=== PATIENT | male | born 1990 | race Caucasian/White ===

== ENCOUNTER 2024-05-30 12:15 | Emergency (ER) | payer OTHER, SELFPAY ==
[2024-05-30 12:20] VITALS: BP 124/75; PULSE 69; RESP 18; TEMP 36.6; O2SAT 98; BMI 25.8
[2024-05-30 12:55] LABS: Appearance Urine UA CLEAR; Bilirubin Urine UA NEGATIVE (NEGATIVE); Color Urine UA YELLOW; Glucose Urine UA NEGATIVE (Negative); Ketones Urine UA NEGATIVE (NEGATIVE); Leukocyte Esterase Urine UA NEGATIVE (NEGATIVE); Nitrite Urine UA NEGATIVE (Negative); Occult Blood Urine UA NEGATIVE (Negative); Protein Urine UA NEGATIVE (Negative); Specific Gravity Urine UA >=1.030 (1.000-1.035); Urobilinogen Urine UA 0.2 E.U./dL (0.2)
[2024-05-30 13:02] LABS: Bacteria Urine Occasional (0-1); Culture Indicated Urine Cult Not Indicated; Mucus Urine 2+ (Negative); RBC Urine None Seen (0-5/HPF); Squamous Epithelial Cell Urine 0-1 /HPF (0-5/HPF); Urine Volume 10mL (spun); WBC Urine 0-1/HPF (0-5/HPF)
--- NOTE | 2024-05-30 13:06 | ED_ITS ---
HPI - Recheck/Abnormal Lab/Rx <Maurice Metzger PA-C - Last Filed: 05/30/24 19:29> General Chief Complaint: Recheck/Abnormal Lab/Rx Stated Complaint: rectal px Time Seen by Provider: 05/30/24 12:39 History of Present Illness HPI narrative: 33-year-old MSM male presents to the ED with rectal pain and bleeding for 4-5 days. Patient states that the pain and bleeding started after rectal intercourse 4 or 5 days ago. Patient was seen at [facility], diagnosed with proctitis and started on ciprofloxacin and hydrocortisone rectal suppositories to reduce the swelling and inflammation. Imaging was deferred at that time due to the degree of swelling. Patient has been taking the medications as prescribed, but is still experiencing significant pain. Patient describes the pain as being in the rectum and perineum, sometimes radiating into the inguinal area. No fever, chills, nausea, vomiting, chest pain, shortness of breath. Patient is still having pain and bleeding with defecation. Related Data Previous Rx's Medication Instructions Recorded levofloxacin 500 mg tablet 500 mg PO DAILY 10 days #10 tabs 05/30/24 Allergies Allergy/AdvReac Type Severity Reaction Status Date / Time No Known Drug Allergies Allergy Verified 05/30/24 12:20 Review of Systems <Maurice Metzger PA-C - Last Filed: 05/30/24 19:29> Constitutional Constitutional: Denies chills, Denies fatigue, Denies fever(s), Denies frequent falls, Denies lethargy and Denies weakness Eyes Eyes: Denies change in vision, Denies eye discharge, Denies irritation and Denies loss of vision ENT Ears, Nose, Mouth, and Throat: Denies change in voice, Denies dizziness, Denies neck pain, Denies sore throat and Denies throat swelling Cardiovascular Cardiovascular: Denies chest pain, Denies irregular heart rhythm, Denies lightheadedness, Denies palpitations, Denies dyspnea, Denies dyspnea on exertion and Denies orthopnea Respiratory Respiratory: Denies cough, Denies dyspnea, Denies dyspnea on exertion and Denies wheezing Gastrointestinal Gastrointestinal: Denies abdominal pain, Reports hematochezia, Denies change in bowel habits, Denies diarrhea, Denies nausea and Denies vomiting Comments: Rectal pain Musculoskeletal Musculoskeletal: Denies neck pain and Denies numbness Integumentary/Breasts Skin/Breast: Denies pruritus, Denies erythema, Denies rash and Denies wounds Neurologic Neurologic: Denies behavioral changes, Denies confusion, Denies dizziness, Denies frequent falls, Denies loss of vision, Denies numbness and Denies weakness Psychiatric Psychiatric: Denies anxiety, Denies behavioral changes, Denies confusion, Denies depression, Denies homicidal ideation and Denies suicidal ideation Endocrine Endocrine: Denies fatigue, Denies flushing and Denies palpitations Hematologic/Lymphatic Hematologic/Lymphatic: Denies easy bruising Allergic/Immunologic Allergic/Immunologic: Denies urticaria, Denies throat swelling and Denies wheezing Patient History <Maurice Metzger PA-C - Last Filed: 05/30/24 19:29> Social History Smoking Status: Unknown if ever smoked Smoking Status: Unknown if ever smoked alcohol intake frequency: other Substance Use Type: does not use Exam <Maurice Metzger PA-C - Last Filed: 05/30/24 19:29> Narrative Exam Narrative: Const General:?cooperative, healthy appearing and comfortable [facility] Head:?normal to inspection Ears:?hearing grossly normal bilaterally Nose:?external nose normal Face and sinus:?normal facial exam and sinuses nontender Mouth:?oral mucosae normal Throat:?posterior oropharynx normal Eyes General:?appearance normal, both eyes and all related structures Neck Neck:?normal visual inspection and no lymphadenopathy noted Resp Effort & Inspection:?normal respiratory effort Auscultation:?clear to auscultation bilaterally Cardio Rate:?regular rate Rhythm:?regular rhythm GI/ Abdomen is soft, nondistended, nontender to palpation. Normal scrotal exam. No external hemorrhoids visualized on exam. Neuro General:?patient alert, patient awake and patient oriented x3 Initial Vital Signs Initial Vital Signs: Vital Signs Temperature 97.8 F 05/30/24 12:20 Pulse Rate 69 05/30/24 12:20 Respiratory Rate 18 05/30/24 12:20 Blood Pressure 124/75 05/30/24 12:20 Pulse Oximetry 98 05/30/24 12:20 Oxygen Delivery Method Room Air 05/30/24 12:20 <Yudy Pearson DO - Last Filed: 06/05/24 07:59> Initial Vital Signs Initial Vital Signs: Vital Signs Temperature 97.8 F 05/30/24 12:20 Pulse Rate 69 05/30/24 12:20 Respiratory Rate 18 05/30/24 12:20 Blood Pressure 124/75 05/30/24 12:20 Pulse Oximetry 98 05/30/24 12:20 Oxygen Delivery Method Room Air 05/30/24 12:20 Course <Maurice Metzger PA-C - Last Filed: 05/30/24 19:29> Orders Ordered: Discontinued Medications Ceftriaxone Sodium (Ceftriaxone 2,000 Mg Vial) 1,000 mg IM NOW ONE Stop: 05/30/24 17:24 Last Admin: 05/30/24 17:47 Dose: 1,000 mg Documented By: RB Ketorolac Tromethamine (Ketorolac 30 Mg/Ml Vial) 15 mg IV NOW ONE Stop: 05/30/24 13:36 Last Admin: 05/30/24 14:00 Dose: 15 mg Documented By: RB Morphine Sulfate (Morphine 4 Mg/Ml Inj) 4 mg IV NOW ONE Stop: 05/30/24 16:23 Last Admin: 05/30/24 16:32 Dose: 4 mg Documented By: RB Vital Signs Vital signs: Vital Signs - 8 hr 05/30/24 12:20 05/30/24 16:01 05/30/24 18:11 Temperature 97.8 F 98.1 F Pulse Rate 69 71 70 Respiratory Rate 18 20 18 Blood Pressure 124/75 141/65 H 132/68 Pulse Oximetry 98 98 98 Oxygen Delivery Method Room Air Room Air <Yudy Pearson DO - Last Filed: 06/05/24 07:59> Orders Ordered: Discontinued Medications Ceftriaxone Sodium (Ceftriaxone 2,000 Mg Vial) 1,000 mg IM NOW ONE Stop: 05/30/24 17:24 Last Admin: 05/30/24 17:47 Dose: 1,000 mg Documented By: RB Ketorolac Tromethamine (Ketorolac 30 Mg/Ml Vial) 15 mg IV NOW ONE Stop: 05/30/24 13:36 Last Admin: 05/30/24 14:00 Dose: 15 mg Documented By: RB Morphine Sulfate (Morphine 4 Mg/Ml Inj) 4 mg IV NOW ONE Stop: 05/30/24 16:23 Last Admin: 05/30/24 16:32 Dose: 4 mg Documented By: RB Vital Signs Vital signs: Vital Signs - 8 hr 05/30/24 12:20 05/30/24 16:01 05/30/24 18:11 Temperature 97.8 F 98.1 F Pulse Rate 69 71 70 Respiratory Rate 18 20 18 Blood Pressure 124/75 141/65 H 132/68 Pulse Oximetry 98 98 98 Oxygen Delivery Method Room Air Room Air MDM - Recheck/Abnormal Lab/Rx <Maurice Metzger PA-C - Last Filed: 05/30/24 19:29> Lab Data 05/30/24 13:10 05/30/24 13:10 Labs: Lab Results 05/30/24 05/30/24 Range/Units 12:45 13:10 WBC 5.5 (4.5-11.0) X10^3/uL RBC 4.92 (4.5-5.9) X10^6/uL Hgb 14.5 (13.5-17.5) g/dL Hct 42.4 (41-53) % MCV 86.3 (80-100) fL MCH 29.5 (26-34) PG MCHC 34.2 (30-36) % RDW 12.6 (11.6-14.8) % Plt Count 240 (150-400) X10^3/uL Neut % (Auto) 65.4 (50-75) % Lymph % (Auto) 21.2 L (25-40) % [place] % (Auto) 12.0 (3-14) % Eos % (Auto) 0.7 L (2-4) % Baso % (Auto) 0.7 (0-2) % Neut # (Auto) 3600 (0893-1122) /uL Lymph # (Auto) 1200 (6652-4548) /uL [place] # (Auto) 700 (0-900) /uL Eos # (Auto) 0 (0-450) /uL Baso # (Auto) 0 (0-100) /uL Sodium 139 (137-145) mmol/L Potassium 4.1 (3.4-5.1) mmol/L Chloride 106 (98-107) mmol/L Carbon Dioxide 27 (22-32) mmol/L BUN 13 (9-20) mg/dL Creatinine 1.11 (0.66-1.25) mg/dL Estimated GFR > 60 (>60) mL/min BUN/Creatinine Ratio 11.7 (6-22) Glucose 93 (70-100) mg/dL Calcium 9.4 (8.4-10.2) mg/dL Total Bilirubin 0.8 (0.2-1.3) mg/dL AST 22 (17-59) IU/L ALT 20 (<50) IU/L Alkaline Phosphatase 64 (38-126) U/L Total Protein 7.0 (6.3-8.2) g/dL Albumin 4.1 (3.5-5.0) g/dL Globulin 2.9 (1.7-4.1) g/dL Albumin/Globulin Ratio 1.4 (1.0-2.8) Lipase 24 (23-300) U/L Urine Color Yellow Urine Appearance Clear Urine pH 7.0 (4.5-8.0) Ur Specific [place] >=1.030 H (1.000-1.035) Urine Protein Negative (Negative) Urine Glucose (UA) Negative (Negative) g/dL Urine Ketones Negative (NEGATIVE) Urine Occult Blood Negative (Negative) Urine Nitrate Negative (Negative) Urine Bilirubin Negative (NEGATIVE) Urine Urobilinogen 0.2 (0.2) E.U./dL Ur Leukocyte Esterase Negative (NEGATIVE) Urine RBC None seen (0-5/HPF) Urine WBC 0-1/hpf (0-5/HPF) Ur Squamous Epith Cells 0-1 /hpf (0-5/HPF) Urine Bacteria Occasional (0-1) (None) Urine Mucus 2+ H (Negative) Ur Culture Indicated? Cult not indicated Vol Urine Centrifuged 10ml (spun) RPR w/Rflx to Titer Non reactive (Non Reactive) Treponema pallidum Ab Non reactive (Non Reactive) Ur Chlamydia DNA (PCR) Not detected HIV 1&2 Ab/P24 Ag 4thGn Negative (NEGATIVE) N gonorrhoeae DNA (PCR) Not detected MDM Narrative Medical decision making narrative: 33-year-old MSM male presents to the ED with rectal pain and bleeding for 4-5 days. Concern for proctitis versus other rectal trauma versus orchitis versus other. Will obtain ultrasound scrotum, CT abdomen pelvis, UA, labs. Patient also requests STI testing. Will screen for GC, HIV, syphilis. Will give Toradol for pain. Will reassess. Labs within normal limits. UA without UTI. CT abdomen pelvis shows diffuse rectal wall thickening with narrowing of the lumen. Finding is concerning for infectious inflammatory proctitis. There is mild sigmoid diverticulosis without CT evidence of acute diverticulitis. No abscess collection. No free fluid or free air. Normal appendix. No renal stones or hydronephrosis. Scrotal ultrasound shows mild heterogeneity of the right testicle with increased vascularity, concerning for orchitis. The right epididymis demonstrates normal vascularity. It is unusual to have orchitis without associated epididymitis. Recommend follow-up ultrasound after treatment to ensure resolution. Mild increased vascularity within the midline scrotal wall may be reactive. Discussed findings with patient. Patient given a dose of ceftriaxone IM in the ED. patient's antibiotics switched to levofloxacin. Recommend follow-up with Urology and GI and PCP. ED return precautions were discussed with patient. Patient verbalized understanding. Medical records reviewed: Yes <Yudy Pearson, DO - Last Filed: 06/05/24 07:59> Lab Data Labs: Lab Results 05/30/24 05/30/24 Range/Units 12:45 13:10 WBC 5.5 (4.5-11.0) X10^3/uL RBC 4.92 (4.5-5.9) X10^6/uL Hgb 14.5 (13.5-17.5) g/dL Hct 42.4 (41-53) % MCV 86.3 (80-100) fL MCH 29.5 (26-34) PG MCHC 34.2 (30-36) % RDW 12.6 (11.6-14.8) % Plt Count 240 (150-400) X10^3/uL Neut % (Auto) 65.4 (50-75) % Lymph % (Auto) 21.2 L (25-40) % [place] % (Auto) 12.0 (3-14) % Eos % (Auto) 0.7 L (2-4) % Baso % (Auto) 0.7 (0-2) % Neut # (Auto) 3600 (7077-9050) /uL Lymph # (Auto) 1200 (2472-1014) /uL [place] # (Auto) 700 (0-900) /uL Eos # (Auto) 0 (0-450) /uL Baso # (Auto) 0 (0-100) /uL Sodium 139 (137-145) mmol/L Potassium 4.1 (3.4-5.1) mmol/L Chloride 106 (98-107) mmol/L Carbon Dioxide 27 (22-32) mmol/L BUN 13 (9-20) mg/dL Creatinine 1.11 (0.66-1.25) mg/dL Estimated GFR > 60 (>60) mL/min BUN/Creatinine Ratio 11.7 (6-22) Glucose 93 (70-100) mg/dL Calcium 9.4 (8.4-10.2) mg/dL Total Bilirubin 0.8 (0.2-1.3) mg/dL AST 22 (17-59) IU/L ALT 20 (<50) IU/L Alkaline Phosphatase 64 (38-126) U/L Total Protein 7.0 (6.3-8.2) g/dL Albumin 4.1 (3.5-5.0) g/dL Globulin 2.9 (1.7-4.1) g/dL Albumin/Globulin Ratio 1.4 (1.0-2.8) Lipase 24 (23-300) U/L Urine Color Yellow Urine Appearance Clear Urine pH 7.0 (4.5-8.0) Ur Specific [place] >=1.030 H (1.000-1.035) Urine Protein Negative (Negative) Urine Glucose (UA) Negative (Negative) g/dL Urine Ketones Negative (NEGATIVE) Urine Occult Blood Negative (Negative) Urine Nitrate Negative (Negative) Urine Bilirubin Negative (NEGATIVE) Urine Urobilinogen 0.2 (0.2) E.U./dL Ur Leukocyte Esterase Negative (NEGATIVE) Urine RBC None seen (0-5/HPF) Urine WBC 0-1/hpf (0-5/HPF) Ur Squamous Epith Cells 0-1 /hpf (0-5/HPF) Urine Bacteria Occasional (0-1) (None) Urine Mucus 2+ H (Negative) Ur Culture Indicated? Cult not indicated Vol Urine Centrifuged 10ml (spun) RPR w/Rflx to Titer Non reactive (Non Reactive) Treponema pallidum Ab Non reactive (Non Reactive) Ur Chlamydia DNA (PCR) Not detected HIV 1&2 Ab/P24 Ag 4thGn Negative (NEGATIVE) N gonorrhoeae DNA (PCR) Not detected Discharge Plan Departure Patient Disposition: Home Clinical Impression: Acute proctitis, Orchitis Instructions: DI for Proctitis Activity Restrictions/Additional Instructions: You were evaluated in the ED today for rectal pain and bleeding. Your CT scan shows proctitis which is an inflammation of the rectum and the ultrasound shows orchitis which is an infection of the testicle. You are being prescribed a different antibiotic levofloxacin to take for the next 10 days. Please take those as prescribed. You may continue using the hydrocortisone suppositories. You were also given an injection of ceftriaxone which is an antibiotic. Please follow-up with your primary care doctor, a urologist as well as a GI specialist for further evaluation and treatment. Return to the ED if you have worsening symptoms. Prescriptions: New levofloxacin 500 mg tablet 500 mg PO DAILY 10 Days Qty: 10 0RF Referrals: ProviderJami [Primary Care Provider] - Stand Alone Forms: Patient Portal/API/Survey, Work Release Note ED Sign-out <Yudy Pearson DO - Last Filed: 06/05/24 07:59> Cosign ED Attending Eduardo Attestation: I was immediately available in the department for consultation.
--- NOTE | 2024-05-30 13:16 | DI.US.S_ITS ---
PROCEDURE: US SCROTUM INDICATIONS: PAIN TECHNIQUE: Real-time scanning was performed of the scrotum and testicles, with image documentation. Color and pulse Doppler interrogation was performed of both testicles. COMPARISON: None. FINDINGS: Right: Testicle is normal in size at 4.8 x 3.3 x 2.2 cm, with a heterogeneous echotexture. Epididymis is normal in overall size and morphology. Epididymal head cyst measuring 5 millimeters. No hydrocele or varicoceles. Overlying scrotal skin is normal in thickness. Mild increased activity within the midline scrotal wall. Left: Testicle is normal in size at 4.8 x 3.2 x 2.2 cm, and homogeneous in echotexture. Epididymis is normal in overall size and morphology. Epididymal head cyst measuring 2 millimeters. Small hydrocele. No varicoceles. Overlying scrotal skin is normal in thickness. Doppler: Color and pulse Doppler demonstrate increased arterial flow within the right testicle. IMPRESSION: Mild heterogeneity of the right testicle with increased vascularity, concerning for orchitis. The right epididymis demonstrates normal vascularity. It is unusual to have orchitis without associated epididymitis. Recommend follow-up ultrasound after treatment to ensure resolution. Mild increased vascularity within the midline scrotal wall, may be reactive. Dictated by: Rolly Ackerman M.D. on 05/30/2024 at 15:31 Approved by: Rolly Ackerman M.D. on 05/30/2024 at 15:35
--- NOTE | 2024-05-30 13:16 | DI.CT.S_ITS ---
PROCEDURE: CT ABDOMEN PELVIS W CON INDICATIONS: rectal and groin pain TECHNIQUE: After the administration of intravenous contrast, axial sections acquired from the lung bases to the pubic symphysis. Coronal and sagittal reformats were performed. For radiation dose reduction, the following was used: automated exposure control, adjustment of mA and/or kV according to patient size. COMPARISON: None. FINDINGS: Image quality: Diagnostic. Lower Chest: No significant findings. ABDOMEN: Liver: No solid mass. Gallbladder: No radiopaque gallstones or wall thickening. Biliary ducts: No biliary dilation. Pancreas: No ductal dilation. Spleen: Size is within normal limits. Adrenal Glands: No adrenal nodules. Kidneys and Ureters: No hydronephrosis. No solid mass. No complex renal cystic lesion which requires follow up. Stomach and Bowel: There is diffuse rectal wall thickening with narrowing of the lumen. No other area of abnormal bowel wall thickening. No abscess collection. Sigmoid diverticulosis is seen without CT evidence of acute diverticulitis. Appendix is visualized in right lower quadrant and is within normal limits. Peritoneum: No abnormal intraperitoneal fluid. No free air. Ventral Wall: No significant ventral hernia. Abdominal Nodes: No retroperitoneal or mesenteric adenopathy by size criteria. Vessels: Aorta and inferior vena cava are normal in size. PELVIS: Pelvic Organs: Unremarkable. Bladder: No bladder wall thickening, accounting for underdistention. Pelvic Nodes: No enlarged lymph nodes. Miscellaneous: No inguinal hernias are seen. Bones: No aggressive osseous abnormality. IMPRESSION: 1. Finding is concerning for infectious inflammatory proctitis. Clinical correlation and follow-up is recommended. There is no other area of abnormal bowel wall thickening. Mild sigmoid diverticulosis without CT evidence of acute diverticulitis. No abscess collection. No free fluid or free air. Normal appendix. 2. No renal stones or hydronephrosis. Dictated by: Nabor Mo M.D. on 05/30/2024 at 14:54 Approved by: Nabor Mo M.D. on 05/30/2024 at 15:01
[2024-05-30 13:23] LABS: Add Manual Diff / Slide Review NO; Basophils Absolute Auto 0 /uL (0-100); Basophils Percent Auto 0.7 % (0-2); Eosinophils Absolute Auto 0 /uL (0-450); Eosinophils Percent Auto 0.7 % (2-4); Hematocrit 42.4 % (41-53); Hemoglobin 14.5 g/dL (13.5-17.5); Lymphocytes Absolute Auto 1200 /uL (1100-4500); Lymphocytes Percent Auto 21.2 % (25-40); Mean Corpuscular HGB Conc 34.2 % (30-36); Mean Corpuscular Hemoglobin 29.5 PG (26-34); Mean Corpuscular Volume 86.3 fL (80-100); Monocytes Absolute Auto 700 /uL (0-900); Neutrophils Absolute Auto 3600 /uL (1500-7000); Neutrophils Percent Auto 65.4 % (50-75); Platelet Count 240 X10^3/uL (150-400); Red Blood Cell Count 4.92 X10^6/uL (4.5-5.9); Red Cell Distribution Width 12.6 % (11.6-14.8); White Blood Cell Count 5.5 X10^3/uL (4.5-11.0)
[2024-05-30 13:37] LABS: Alanine Aminotransferase 20 IU/L (<50); Albumin 4.1 g/dL (3.5-5.0); Albumin Globulin Ratio 1.4 (1.0-2.8); Alkaline Phosphatase 64 U/L (38-126); Aspartate Aminotransferase 22 IU/L (17-59); BUN Creatinine Ratio 11.7 (6-22); Bilirubin Total 0.8 mg/dL (0.2-1.3); Blood Urea Nitrogen 13 mg/dL (9-20); Calcium 9.4 mg/dL (8.4-10.2); Carbon Dioxide 27 mmol/L (22-32); Chloride 106 mmol/L (98-107); Estimated Glomerular Filt Rate > 60 mL/min (>60); Globulin 2.9 g/dL (1.7-4.1); Glucose 93 mg/dL (70-100); HEMOLYSIS < 15 (0-50); Lipase 24 U/L (23-300); Potassium 4.1 mmol/L (3.4-5.1); Sodium 139 mmol/L (137-145)
[2024-05-30] MEDS: KETOROLAC 30 MG/ML VIAL 15 MG IV (14:00)
[2024-05-30 14:19] LABS: Urine N gonorrhoeae NOT DETECTED
[2024-05-30 14:20] LABS: HIV 1 & 2 Ab/Ag 4th Gen Combo NEGATIVE (NEGATIVE)
[2024-05-30 14:24] LABS: Urine Chlamydia NOT DETECTED
[2024-05-30 16:01] VITALS: BP 141/65; PULSE 71; RESP 20; O2SAT 98
[2024-05-30] MEDS: MORPHINE 4 MG/ML INJ IV (16:32)
[2024-05-30] MEDS: cefTRIAXone 2,000 MG VIAL 1000 MG IM (17:47)
[2024-05-30 18:11] VITALS: BP 132/68; PULSE 70; RESP 18; TEMP 36.7; O2SAT 98
[2024-05-31 04:14] LABS: RPR Screen Non Reactive (Non Reactive)
[2024-06-01 16:36] LABS: Treponema pallidum Antibodies Non Reactive (Non Reactive)
== END 2024-05-30 18:26 | disposition home or self-care (01) ==
PROVIDERS: Emergency Provider Student in an Organized Health Care Education/Training Program
DX: N45.2 Orchitis (principal); K62.89 Other specified diseases of anus and rectum
CPT/HCPCS: 36415; 74177; 76870; 80053; 81001; 83690; 85025; 86592; 86780; 87389; 87491; 87591; 93975; 96372; 96374; 96375; 99284; J0696; J1885; J2270; Q9967

== ENCOUNTER 2024-06-08 08:55 | Emergency (ER) | payer OTHER, SELFPAY ==
[2024-06-08 09:04] VITALS: BP 132/73; PULSE 66; RESP 14; TEMP 36.1; O2SAT 99; BMI 25.8
[2024-06-08 09:18] LABS: Appearance Urine UA CLEAR; Bilirubin Urine UA NEGATIVE (NEGATIVE); Color Urine UA YELLOW; Glucose Urine UA NEGATIVE (Negative); Ketones Urine UA NEGATIVE (NEGATIVE); Leukocyte Esterase Urine UA NEGATIVE (NEGATIVE); Nitrite Urine UA NEGATIVE (Negative); Occult Blood Urine UA NEGATIVE (Negative); Protein Urine UA NEGATIVE (Negative); Specific Gravity Urine UA 1.025 (1.000-1.035); Urobilinogen Urine UA 0.2 E.U./dL (0.2)
[2024-06-08 09:29] LABS: Bacteria Urine None Seen; Culture Indicated Urine Cult Not Indicated; RBC Urine None Seen (0-5/HPF); Squamous Epithelial Cell Urine None Seen (0-5/HPF); Urine Volume 10mL (spun); WBC Urine None Seen (0-5/HPF)
--- NOTE | 2024-06-08 11:41 | ED_ITS ---
HPI - Male Genitourinary <Mirela Mathis PA-C - Last Filed: 06/08/24 17:01> General Chief complaint: Urogenital-Male Stated complaint: Rectal pain not getting better from last ER visit Time Seen by Provider: 06/08/24 11:41 Mode of arrival: Ambulatory History of Present Illness HPI Narrative: Mr. Metz is a pleasant 33-year-old MSM male who presents to the emergency department for rectal pain, scrotal pain, dysuria x 12 days. Patient was evaluated in our ED on 05/30/2024 and was diagnosed with right-sided orchitis and prostatitis on imaging. He was treated with IM Rocephin and p.o. levofloxacin. He is on his last day (day 10) of the levofloxacin but continues to have perineal and rectal burning and significant dysuria. He has not engaged in any receptive anal intercourse since his symptoms began on 05/28/2024. He was 1st seen at [facility] 05/28 when his symptoms began suddenly after receptive anal intercourse. He denies fevers or chills but does report night sweats. Admits to feeling nauseous. Denies hematuria, melena, hematochezia, vomiting. Related Data Previous Rx's Medication Instructions Recorded acetaminophen 500 mg tablet 1,000 mg (2 x 500 mg) PO Q8H PRN 06/08/24 (Tylenol Extra Strength) pain #20 tabs ibuprofen 600 mg tablet 600 mg PO Q8H PRN pain #20 tabs 06/08/24 phenazopyridine 200 mg tablet 200 mg PO TID 6 doses #6 tabs 06/08/24 Allergies Allergy/AdvReac Type Severity Reaction Status Date / Time No Known Drug Allergies Allergy Verified 06/08/24 09:04 Review of Systems <Mirela Mathis PA-C - Last Filed: 06/08/24 17:01> Review of Systems ROS Unobtainable: All systems reviewed & are unremarkable except as noted in HPI and below Patient History <Mirela Mathis PA-C - Last Filed: 06/08/24 17:01> Social History Smoking Status: Unknown if ever smoked Smoking Status: Unknown if ever smoked alcohol intake frequency: holidays/special occasions only Substance Use Type: does not use Exam <Mirela Mathis PA-C - Last Filed: 06/08/24 17:01> Narrative Exam Narrative: GENERAL: 33 year old patient appears stated age. Well-developed patient, in no acute distress. HEAD: Atraumatic. Normocephalic. EYES: Pupils equal round and reactive. Extraocular motions intact. No scleral icterus. No injection or drainage. ENT: Nose without bleeding, purulent drainage. Throat without erythema, tonsillar hypertrophy or exudate. Airway patent. NECK: Trachea midline. Non tender CARDIOVASCULAR: Regular rate and rhythm. RESPIRATORY: Clear to auscultation. Breath sounds equal bilaterally. No wheezes, rales, or rhonchi. GASTROINTESTINAL: Bowel sounds present. Abdomen soft, mild suprapubic tenderness. No rebound or guarding. Normal external genital visualization. Circumcised penis with no rashes or drainage. Tenderness to palpation of bilateral testes and left inguinal canal. External rectal exam reveals skin tag with no obvious lesions, erythema or abscess. Patient gave verbal consent for genital exam and nurse salesperson women's hats was present. EXTREMITIES: No edema or joint tenderness. Steady gait. NEURO: AOx3. SKIN: No rash or erythema of visible areas Initial Vital Signs Initial Vital Signs: Vital Signs Temperature 97.0 F L 06/08/24 09:04 Pulse Rate 66 06/08/24 09:04 Respiratory Rate 14 06/08/24 09:04 Blood Pressure 132/73 06/08/24 09:04 Pulse Oximetry 99 06/08/24 09:04 Oxygen Delivery Method Room Air 06/08/24 09:04 <Usha Lamb DO - Last Filed: 06/11/24 07:24> Initial Vital Signs Initial Vital Signs: Vital Signs Temperature 97.0 F L 06/08/24 09:04 Pulse Rate 66 06/08/24 09:04 Respiratory Rate 14 06/08/24 09:04 Blood Pressure 132/73 06/08/24 09:04 Pulse Oximetry 99 06/08/24 09:04 Oxygen Delivery Method Room Air 06/08/24 09:04 Course <Mirela Mathis PA-C - Last Filed: 06/08/24 17:01> Course Course Narrative: 1450: Discussed case with surgeon counselor education professor Dr. Baugh. Does not recommend any acute intervention. Advised patient follow up with him in office for colonoscopy. Orders Ordered: Discontinued Medications Ketorolac Tromethamine (Ketorolac 30 Mg/Ml Vial) 15 mg IV NOW ONE Stop: 06/08/24 12:45 Last Admin: 06/08/24 13:07 Dose: 15 mg Documented By: BS Vital Signs Vital signs: Vital Signs - 8 hr 06/08/24 09:04 06/08/24 13:59 06/08/24 15:22 Temperature 97.0 F L 98.2 F Pulse Rate 66 74 72 Respiratory Rate 14 16 16 Blood Pressure 132/73 136/79 134/78 Pulse Oximetry 99 98 98 Oxygen Delivery Method Room Air Room Air Room Air <Usha Lamb DO - Last Filed: 06/11/24 07:24> Orders Ordered: Discontinued Medications Ketorolac Tromethamine (Ketorolac 30 Mg/Ml Vial) 15 mg IV NOW ONE Stop: 06/08/24 12:45 Last Admin: 06/08/24 13:07 Dose: 15 mg Documented By: BS Vital Signs Vital signs: Vital Signs - 8 hr 06/08/24 09:04 06/08/24 13:59 06/08/24 15:22 Temperature 97.0 F L 98.2 F Pulse Rate 66 74 72 Respiratory Rate 14 16 16 Blood Pressure 132/73 136/79 134/78 Pulse Oximetry 99 98 98 Oxygen Delivery Method Room Air Room Air Room Air MDM - Male Genitourinary <Mirela Mathis PA-C - Last Filed: 06/08/24 17:01> Lab Data 06/08/24 12:58 06/08/24 12:58 Labs: Lab Results 06/08/24 06/08/24 06/08/24 Range/Units 09:10 12:27 12:58 WBC 8.0 (4.5-11.0) X10^3/uL RBC 5.34 (4.5-5.9) X10^6/uL Hgb 15.6 (13.5-17.5) g/dL Hct 45.8 (41-53) % MCV 85.8 (80-100) fL MCH 29.1 (26-34) PG MCHC 33.9 (30-36) % RDW 12.8 (11.6-14.8) % Plt Count 306 (150-400) X10^3/uL Neut % (Auto) 67.8 (50-75) % Lymph % (Auto) 24.3 L (25-40) % [place] % (Auto) 6.6 (3-14) % Eos % (Auto) 0.4 L (2-4) % Baso % (Auto) 0.9 (0-2) % Neut # (Auto) 5500 (4105-6348) /uL Lymph # (Auto) 2000 (2422-1808) /uL [place] # (Auto) 500 (0-900) /uL Eos # (Auto) 0 (0-450) /uL Baso # (Auto) 100 (0-100) /uL Sodium 138 (137-145) mmol/L Potassium 4.0 (3.4-5.1) mmol/L Chloride 106 (98-107) mmol/L Carbon Dioxide 26 (22-32) mmol/L BUN 17 (9-20) mg/dL Creatinine 1.15 (0.66-1.25) mg/dL Estimated GFR > 60 (>60) mL/min BUN/Creatinine Ratio 14.8 (6-22) Glucose 91 (70-100) mg/dL Calcium 9.3 (8.4-10.2) mg/dL Total Bilirubin 0.7 (0.2-1.3) mg/dL AST 21 (17-59) IU/L ALT 17 (<50) IU/L Alkaline Phosphatase 70 (38-126) U/L Total Protein 7.5 (6.3-8.2) g/dL Albumin 4.5 (3.5-5.0) g/dL Globulin 3.0 (1.7-4.1) g/dL Albumin/Globulin Ratio 1.5 (1.0-2.8) Urine Color Yellow Yellow Urine Appearance Clear Clear Urine pH 6.0 6.5 (4.5-8.0) Ur Specific [place] 1.025 1.010 (1.000-1.035) Urine Protein Negative Negative (Negative) Urine Glucose (UA) Negative Negative (Negative) g/dL Urine Ketones Negative Negative (NEGATIVE) Urine Occult Blood Negative Negative (Negative) Urine Nitrate Negative Negative (Negative) Urine Bilirubin Negative Negative (NEGATIVE) Urine Urobilinogen 0.2 0.2 (0.2) E.U./dL Ur Leukocyte Esterase Negative Negative (NEGATIVE) Urine RBC None seen None seen (0-5/HPF) Urine WBC None seen None seen (0-5/HPF) Ur Squamous Epith Cells None seen None seen (0-5/HPF) Urine Bacteria None seen None seen (None) Ur Culture Indicated? Cult not indicated Cult not indicated Vol Urine Centrifuged 10ml (spun) 10ml (spun) Ur Chlamydia DNA (PCR) Not detected N gonorrhoeae DNA (PCR) Not detected Imaging Data CT scan - abdomen/pelvis: Radiologist's Impression: FINDINGS: Image quality: Diagnostic. Lower Chest: No significant findings. ABDOMEN: Liver: No solid mass. Gallbladder: No radiopaque gallstones or wall thickening. Biliary ducts: No biliary dilation. Pancreas: No ductal dilation. Spleen: Size is within normal limits. Coarse calcifications in the spleen likely related to remote prior granulomatous disease. Adrenal Glands: No adrenal nodules. Kidneys and Ureters: No hydronephrosis. No solid mass. No complex renal cystic lesion which requires follow up. 2 mm nonobstructing calculus at the inferior pole of the right kidney. Stomach and Bowel: Mild colonic diverticulosis without signs of acute diverticulitis. Normal appendix. Small bowel loops and stomach are unremarkable. Peritoneum: No abnormal intraperitoneal fluid. No free air. Ventral Wall: Postsurgical changes from prior umbilical hernia repair. Abdominal Nodes: No retroperitoneal or mesenteric adenopathy by size criteria. Vessels: Aorta and inferior vena cava are normal in size. PELVIS: Pelvic Organs: Prostate appears normal. Trace left hydrocele. Bladder: No bladder wall thickening, accounting for underdistention. Pelvic Nodes: No enlarged lymph nodes. Miscellaneous: No inguinal hernias are seen. Bones: No aggressive osseous abnormality. IMPRESSION: 1. No acute abnormality identified in the abdomen or pelvis. Normal appendix. 2. Colonic diverticulosis without signs of acute diverticulitis. 3. Nonobstructing 2 mm calculus at the inferior pole the right kidney. Scrotum US: Radiologist's Impression: FINDINGS: Right: Testicle is normal in size at 4.9 x 2.3 x 3.6 cm, and homogenous in echotexture. Epididymis is normal in overall size and morphology. Simple epididymal cyst. No hydrocele or varicoceles. Overlying scrotal skin is normal in thickness. Left: Testicle is normal in size at 4.9 x 2.3 x 3.0 cm, and homogeneous in echotexture. Epididymis is normal in overall size and morphology. Simple epididymal cyst. Small left hydrocele. No varicocele. Overlying scrotal skin is normal in thickness. Doppler: Color and pulse Doppler demonstrate normal and symmetric arterial flow in both testicles. IMPRESSION: No signs of testicular torsion or epididymitis. Small left hydrocele. [facility] Narrative Medical decision making narrative: 33-year-old male presents to the emergency department for , rectal, scrotal pain times 12 days. He is on day 10 of treatment for orchitis/proctitis confirmed by imaging on 05/30/2024. Differential diagnosis includes but is not limited to proctitis, orchitis, epididymitis, STD, UTI, appendicitis, diverticulitis, intra-abdominal abscess, skin abscess, anal fissure, bowel perforation, etc. On exam the patient is in no acute distress, nontoxic appearing, vital signs within normal limits. He has no external abnormalities on rectal or exam but he does have mild tenderness to palpation of the left inguinal region. After shared decision-making with the attending physician, we will proceed with repeat CT abdomen and pelvis, scrotal ultrasound, lab work. We will treat pain with Toradol. Patient's workup reveals normal WBC count at 8.0. Normal renal function and electrolytes. Negative urinalysis including gonorrhea and chlamydia. Labs on 05/30/2024 were reviewed which revealed negative for syphilis, HIV. Patient's imaging shows improvement from 05/30/2024. CT reveals no acute abnormality, normal appendix. Resolution of the proctitis/rectal wall thickening that was previously identified. CT does show a nonobstructing 2 mm calculus at the inferior pole of the right kidney and colonic diverticulosis which I discussed with the patient. Scrotal ultrasound reveals resolution of the orchitis. He does have a small left hydrocele. No signs of testicular torsion or epididymitis. Overall it appears the patient's proctitis and orchitis have resolved appropriately with antibiotics. I discussed the case with the on-call surgeon who did not recommend any acute intervention, but advises the patient follow up for colonoscopy. I also recommended the patient follow up with Urology. He was prescribed ibuprofen and Tylenol for pain in addition to AZO. Patient had improvement in the ED with Toradol. We discussed strict ER return precautions, follow up with specialists and PCP. Patient is agreeable to the plan and stable for discharge. <Usha Lamb, DO - Last Filed: 06/11/24 07:24> Lab Data Labs: Lab Results 06/08/24 06/08/24 06/08/24 Range/Units 09:10 12:27 12:58 WBC 8.0 (4.5-11.0) X10^3/uL RBC 5.34 (4.5-5.9) X10^6/uL Hgb 15.6 (13.5-17.5) g/dL Hct 45.8 (41-53) % MCV 85.8 (80-100) fL MCH 29.1 (26-34) PG MCHC 33.9 (30-36) % RDW 12.8 (11.6-14.8) % Plt Count 306 (150-400) X10^3/uL Neut % (Auto) 67.8 (50-75) % Lymph % (Auto) 24.3 L (25-40) % [place] % (Auto) 6.6 (3-14) % Eos % (Auto) 0.4 L (2-4) % Baso % (Auto) 0.9 (0-2) % Neut # (Auto) 5500 (7777-0286) /uL Lymph # (Auto) 2000 (5930-1313) /uL [place] # (Auto) 500 (0-900) /uL Eos # (Auto) 0 (0-450) /uL Baso # (Auto) 100 (0-100) /uL Sodium 138 (137-145) mmol/L Potassium 4.0 (3.4-5.1) mmol/L Chloride 106 (98-107) mmol/L Carbon Dioxide 26 (22-32) mmol/L BUN 17 (9-20) mg/dL Creatinine 1.15 (0.66-1.25) mg/dL Estimated GFR > 60 (>60) mL/min BUN/Creatinine Ratio 14.8 (6-22) Glucose 91 (70-100) mg/dL Calcium 9.3 (8.4-10.2) mg/dL Total Bilirubin 0.7 (0.2-1.3) mg/dL AST 21 (17-59) IU/L ALT 17 (<50) IU/L Alkaline Phosphatase 70 (38-126) U/L Total Protein 7.5 (6.3-8.2) g/dL Albumin 4.5 (3.5-5.0) g/dL Globulin 3.0 (1.7-4.1) g/dL Albumin/Globulin Ratio 1.5 (1.0-2.8) Urine Color Yellow Yellow Urine Appearance Clear Clear Urine pH 6.0 6.5 (4.5-8.0) Ur Specific [place] 1.025 1.010 (1.000-1.035) Urine Protein Negative Negative (Negative) Urine Glucose (UA) Negative Negative (Negative) g/dL Urine Ketones Negative Negative (NEGATIVE) Urine Occult Blood Negative Negative (Negative) Urine Nitrate Negative Negative (Negative) Urine Bilirubin Negative Negative (NEGATIVE) Urine Urobilinogen 0.2 0.2 (0.2) E.U./dL Ur Leukocyte Esterase Negative Negative (NEGATIVE) Urine RBC None seen None seen (0-5/HPF) Urine WBC None seen None seen (0-5/HPF) Ur Squamous Epith Cells None seen None seen (0-5/HPF) Urine Bacteria None seen None seen (None) Ur Culture Indicated? Cult not indicated Cult not indicated Vol Urine Centrifuged 10ml (spun) 10ml (spun) Ur Chlamydia DNA (PCR) Not detected N gonorrhoeae DNA (PCR) Not detected Discharge Plan Departure Patient Disposition: Home Clinical Impression: Male perineal pain, Pain, rectal, Left hydrocele Instructions: DI for Rectal Injury Activity Restrictions/Additional Instructions: Today your imaging showed improvements in your prior rectal and testicular infection. I have prescribed ibuprofen and acetaminophen for pain, in addition to AZO for pain. AZO will turn your urine orange. Please follow up with a surgeon for colonoscopy, and a urologist for further evaluation. Surgeon: Dr. Baugh with [facility] Urologist: Dr. Hartley with [facility]: Please rest, hydrate, continue taking stool softeners, avoid anything in the rectum, and follow up with the primary care doctor. Return to the emergency department for any new or worsening symptoms. Prescriptions: New ibuprofen 600 mg tablet 600 mg PO Q8H PRN (Reason: pain) Qty: 20 0RF acetaminophen [Tylenol Extra Strength] 500 mg tablet 1,000 mg PO Q8H PRN (Reason: pain) Qty: 20 0RF phenazopyridine 200 mg tablet 200 mg PO TID Qty: 6 0RF Referrals: Provider,Jami COOK [Primary Care Provider] - Stand Alone Forms: Patient Portal/API/Survey, Work Release Note ED Sign-out <Usha Lamb DO - Last Filed: 06/11/24 07:24> Cosign ED Attending Cosignature Attestation: Case discussed with me blood work overall reassuring with improvement on CT. Recommended consulting surgery patient has had many ED visits. I did not see or evaluate patient [id number] I was available for consultation.
[2024-06-08 12:41] LABS: Appearance Urine UA CLEAR; Bilirubin Urine UA NEGATIVE (NEGATIVE); Color Urine UA YELLOW; Glucose Urine UA NEGATIVE (Negative); Ketones Urine UA NEGATIVE (NEGATIVE); Leukocyte Esterase Urine UA NEGATIVE (NEGATIVE); Nitrite Urine UA NEGATIVE (Negative); Occult Blood Urine UA NEGATIVE (Negative); Protein Urine UA NEGATIVE (Negative); Urobilinogen Urine UA 0.2 E.U./dL (0.2); pH Urine UA 6.5 (4.5-8.0)
--- NOTE | 2024-06-08 12:44 | DI.US.S_ITS ---
PROCEDURE: US SCROTUM INDICATIONS: bilateral testicular pain TECHNIQUE: Real-time scanning was performed of the scrotum and testicles, with image documentation. Color and pulse Doppler interrogation was performed of both testicles. COMPARISON: [facility], , US SCROTUM, 05/30/2024, 14:22. FINDINGS: Right: Testicle is normal in size at 4.9 x 2.3 x 3.6 cm, and homogenous in echotexture. Epididymis is normal in overall size and morphology. Simple epididymal cyst. No hydrocele or varicoceles. Overlying scrotal skin is normal in thickness. Left: Testicle is normal in size at 4.9 x 2.3 x 3.0 cm, and homogeneous in echotexture. Epididymis is normal in overall size and morphology. Simple epididymal cyst. Small left hydrocele. No varicocele. Overlying scrotal skin is normal in thickness. Doppler: Color and pulse Doppler demonstrate normal and symmetric arterial flow in both testicles. IMPRESSION: No signs of testicular torsion or epididymitis. Small left hydrocele. Approved by: Rei Mullen M.D. on 06/08/2024 at 14:06
--- NOTE | 2024-06-08 12:44 | DI.CT.S_ITS ---
PROCEDURE: CT ABDOMEN PELVIS W CON INDICATIONS: rectal, scrotal, left inguinal pain TECHNIQUE: After the administration of intravenous contrast, axial sections acquired from the lung bases to the pubic symphysis. Coronal and sagittal reformats were performed. For radiation dose reduction, the following was used: automated exposure control, adjustment of mA and/or kV according to patient size. COMPARISON: [facility], CT, CT ABDOMEN PELVIS W CON, 05/30/2024, 14:13. FINDINGS: Image quality: Diagnostic. Lower Chest: No significant findings. ABDOMEN: Liver: No solid mass. Gallbladder: No radiopaque gallstones or wall thickening. Biliary ducts: No biliary dilation. Pancreas: No ductal dilation. Spleen: Size is within normal limits. Coarse calcifications in the spleen likely related to remote prior granulomatous disease. Adrenal Glands: No adrenal nodules. Kidneys and Ureters: No hydronephrosis. No solid mass. No complex renal cystic lesion which requires follow up. 2 mm nonobstructing calculus at the inferior pole of the right kidney. Stomach and Bowel: Mild colonic diverticulosis without signs of acute diverticulitis. Normal appendix. Small bowel loops and stomach are unremarkable. Peritoneum: No abnormal intraperitoneal fluid. No free air. Ventral Wall: Postsurgical changes from prior umbilical hernia repair. Abdominal Nodes: No retroperitoneal or mesenteric adenopathy by size criteria. Vessels: Aorta and inferior vena cava are normal in size. PELVIS: Pelvic Organs: Prostate appears normal. Trace left hydrocele. Bladder: No bladder wall thickening, accounting for underdistention. Pelvic Nodes: No enlarged lymph nodes. Miscellaneous: No inguinal hernias are seen. Bones: No aggressive osseous abnormality. IMPRESSION: 1. No acute abnormality identified in the abdomen or pelvis. Normal appendix. 2. Colonic diverticulosis without signs of acute diverticulitis. 3. Nonobstructing 2 mm calculus at the inferior pole the right kidney. Approved by: Rei Mullen M.D. on 06/08/2024 at 13:44
[2024-06-08 12:50] LABS: Bacteria Urine None Seen; Culture Indicated Urine Cult Not Indicated; RBC Urine None Seen (0-5/HPF); Squamous Epithelial Cell Urine None Seen (0-5/HPF); Urine Volume 10mL (spun); WBC Urine None Seen (0-5/HPF)
[2024-06-08] MEDS: KETOROLAC 30 MG/ML VIAL 15 MG IV (13:07)
[2024-06-08 13:16] LABS: Add Manual Diff / Slide Review NO; Basophils Absolute Auto 100 /uL (0-100); Basophils Percent Auto 0.9 % (0-2); Eosinophils Absolute Auto 0 /uL (0-450); Eosinophils Percent Auto 0.4 % (2-4); Hematocrit 45.8 % (41-53); Hemoglobin 15.6 g/dL (13.5-17.5); Lymphocytes Absolute Auto 2000 /uL (1100-4500); Lymphocytes Percent Auto 24.3 % (25-40); Mean Corpuscular HGB Conc 33.9 % (30-36); Mean Corpuscular Hemoglobin 29.1 PG (26-34); Mean Corpuscular Volume 85.8 fL (80-100); Monocytes Absolute Auto 500 /uL (0-900); Monocytes Percent Auto 6.6 % (3-14); Neutrophils Absolute Auto 5500 /uL (1500-7000); Neutrophils Percent Auto 67.8 % (50-75); Platelet Count 306 X10^3/uL (150-400); Red Blood Cell Count 5.34 X10^6/uL (4.5-5.9); Red Cell Distribution Width 12.8 % (11.6-14.8)
[2024-06-08 13:23] LABS: Alanine Aminotransferase 17 IU/L (<50); Albumin 4.5 g/dL (3.5-5.0); Albumin Globulin Ratio 1.5 (1.0-2.8); Alkaline Phosphatase 70 U/L (38-126); Aspartate Aminotransferase 21 IU/L (17-59); BUN Creatinine Ratio 14.8 (6-22); Bilirubin Total 0.7 mg/dL (0.2-1.3); Blood Urea Nitrogen 17 mg/dL (9-20); Calcium 9.3 mg/dL (8.4-10.2); Carbon Dioxide 26 mmol/L (22-32); Chloride 106 mmol/L (98-107); Estimated Glomerular Filt Rate > 60 mL/min (>60); Glucose 91 mg/dL (70-100); HEMOLYSIS < 15 (0-50); Sodium 138 mmol/L (137-145); Total Protein 7.5 g/dL (6.3-8.2)
[2024-06-08 13:59] VITALS: BP 136/79; PULSE 74; RESP 16; TEMP 36.8; O2SAT 98
[2024-06-08 15:05] LABS: Urine N gonorrhoeae NOT DETECTED
[2024-06-08 15:15] LABS: Urine Chlamydia NOT DETECTED
[2024-06-08 15:22] VITALS: BP 134/78; PULSE 72; RESP 16; O2SAT 98
== END 2024-06-08 15:25 | disposition home or self-care (01) ==
PROVIDERS: Emergency Medicine; Emergency Provider Physician Assistant
DX: K62.89 Other specified diseases of anus and rectum (principal); N43.3 Hydrocele, unspecified; R10.2 Pelvic and perineal pain; R11.0 Nausea
CPT/HCPCS: 36415; 74177; 76870; 80053; 81001; 85025; 87491; 87591; 93975; 96374; 99284; J1885; Q9967